=== PATIENT | male | born 1945 | race Caucasian/White ===

== ENCOUNTER 2020-03-25 22:51 | Emergency (ER) | payer OTHER ==
[~2020-03-25 22:51] MED LIST: EPINEPHrine 1 MG/10 ML Abboject SYRINGE ONE; Lidocaine 2% PF 100 mg/5 ml Syringe ONE; Sodium Bicarb 50 MEQ/50 ML Abboject 8.4% SYRINGE ONE
[2020-03-26 00:07] LABS: CKMB 3.9 ng/mL (0-6.6)
[2020-03-26 00:11] LABS: Carbon Dioxide 16 mmol/L (23-31); Chloride 103 mmol/L (98-107); Potassium 4.3 mmol/L (3.5-5.1); Sodium 140 mmol/L (136-145)
[2020-03-26 00:27] LABS: ALT (SGPT) 122 U/L (8-55); AST (SGOT) 97 U/L (5-34); Albumin 3.3 g/dL (3.4-4.8); Alkaline Phosphatase 66 U/L (40-110); Anion Gap 28 mmol/L (10-20); BUN (Urea Nitrogen) 16 mg/dL (8.4-25.7); Bilirubin, Total 0.2 mg/dL (0.2-1.2); CK (CPK) 154 U/L (30-200); Calc. Creatinine Clearance 0 mL/min (70-130); Calcium 8.1 mg/dL (7.8-10.44); Glucose 270 mg/dL (83-110); Protein, Total 6.3 g/dL (5.8-8.1)
[2020-03-26 00:30] LABS: Hemoglobin 15.4 g/dL (14.0-18.0); Mean Corpuscular Volume 99.5 fL (78.0-98.0); Red Blood Cell (RBC) Count 4.78 mill/uL (4.70-6.10); White Blood Cell (WBC) Count 14.3 thou/uL (4.8-10.8)
[2020-03-26 00:31] LABS: MDiff Complete? YES; Mean Corpuscular HGB CONC 32.4 g/dL (32.0-36.0); Mean Corpuscular Hemoglobin 32.3 pg (27.0-31.0); Mean Platelet Volume 7.3 fL (7.4-10.4); Platelet Count 233 thou/uL (130-400); RBC Distribution Width 11.9 % (11.5-14.5)
== END 2020-03-26 01:30 | disposition expired ==
LOC: MADERS 22:51
DX: I46.9 Cardiac arrest, cause unspecified (principal); I25.2 Old myocardial infarction; E11.9 Type 2 diabetes mellitus without complications; I10 Essential (primary) hypertension; W18.30XA Fall on same level, unspecified, initial encounter; Y93.E1 Activity, personal bathing and showering; Y92.002 Bathroom of unspecified non-institutional (private) residence as the place of occurrence of the external cause
CPT/HCPCS: 80053; 82550; 82553; 84484; 85025; 92950; 96374; 96375; J0171; J2001